=== PATIENT | male | born 1965 | race Caucasian/White ===

== ENCOUNTER 2018-11-24 14:17 | Observation (INO) | payer BC ==
[~2018-11-24 14:17] MED LIST: REGADENOSON INJ 0.4 MG/5 ML DISP.SYRIN IV ONE
[2018-11-24] MEDS ORDERED: ASPIRIN 81 MG TABLET, CHEWABLE PO ONE (14:46)
--- NOTE | 2018-11-24 15:01 | ER Document Report ---
ED Medical Screen (RME) - General Chief Complaint: Chest Pain Stated Complaint: CHEST PAIN Time Seen by Provider: 11/24/18 14:41 Mode of Arrival: Ambulatory Information source: Patient Notes: Patient is a 53-year-old male past medical history of angina and 2 cardiac stents presenting to the emergency department with complaints of left-sided chest pressure that is been intermittent over the last 2 weeks. Patient reports today the pain is worsening. Patient denies any shortness of breath, diaphoresis or radiation of the pain. He states this does feel similar to his previous episodes of angina. Exam: Patient alert, oriented, answering all questions appropriately. Heart sounds S1-S2 present with no ectopy noted. Lung sounds clear and equal bilaterally. No pain upon palpation of the chest wall. I have greeted and performed a rapid initial assessment of this patient. A comprehensive ED assessment and evaluation of the patient, analysis of test results and completion of the medical decision making process will be conducted by additional ED providers. I have specifically instructed the patient or family members with the patient to immediately return to any nursing staff should anything change in the patient's condition or with their chief complaint. This medical record was dictated with voice recognizing software. There may be grammatical, syntax errors that are unintended. TRAVEL OUTSIDE OF THE [place] IN LAST 30 DAYS: No - Related Data Allergies/Adverse Reactions: No Known Allergies Allergy (Verified 11/24/18 14:50) Past Medical History - Social History Frequency of alcohol use: None Drug Abuse: None Physical Exam - Vital signs Vitals: Temp Pulse Resp BP Pulse Ox 97.8 F 97 16 131/93 H 99 11/24/18 14:25 11/24/18 14:25 11/24/18 14:25 11/24/18 14:25 11/24/18 14:25 Course - Vital Signs Vital signs: Temp Pulse Resp BP Pulse Ox 97.8 F 97 16 131/93 H 99 11/24/18 14:25 11/24/18 14:25 11/24/18 14:25 11/24/18 14:25 11/24/18 14:25
--- NOTE | 2018-11-24 15:21 | RADIOLOGY REPORT (SQ) ---
EXAM DESCRIPTION: CHEST 2 VIEWS COMPLETED DATE/TIME: 11/24/2018 3:10 pm REASON FOR STUDY: chest pain COMPARISON: None. EXAM PARAMETERS: NUMBER OF VIEWS: two views TECHNIQUE: Digital Frontal and Lateral radiographic views of the chest acquired. RADIATION DOSE: NA LIMITATIONS: none FINDINGS: LUNGS AND PLEURA: No opacities, masses or pneumothorax. No pleural effusion. MEDIASTINUM AND HILAR STRUCTURES: No masses or contour abnormalities. HEART AND VASCULAR STRUCTURES: Heart normal size. No evidence for failure. BONES: No acute findings. HARDWARE: None in the chest. OTHER: No other significant finding. IMPRESSION: NO ACUTE RADIOGRAPHIC FINDING IN THE CHEST. TECHNICAL DOCUMENTATION: JOB ID: [id number] [employer]- All Rights Reserved Reading location - IP/workstation name: [email or web address]
[2018-11-24 15:24] LABS: ABSOLUTE EOSINOPHILS # (AUTO) 0.4 10^3/uL (0.0-0.6); ABSOLUTE LYMPHOCYTES (AUTO) 3.5 10^3/uL (0.5-4.7); ABSOLUTE MONOCYTES (AUTO) 0.7 10^3/uL (0.1-1.4); ABSOLUTE NEUT (AUTO) 4.9 10^3/uL (1.7-8.2); BASOPHILS % (AUTO) 0.5 % (0-2); EOSINOPHILS % (AUTO) 4.5 % (0-6); HEMATOCRIT 47.6 % (37.9-51.0); HEMOGLOBIN 16.2 g/dL (13.5-17.0); LYMPHOCYTES % (AUTO) 36.4 % (13-45); MEAN CORPUSCULAR HEMOGLOBIN 28.5 pg (27.0-33.4); MEAN CORPUSCULAR HGB CONC 34.1 g/dL (32.0-36.0); MEAN CORPUSCULAR VOLUME 84 fl (80-97); MONOCYTES % (AUTO) 7.2 % (3-13); PLATELET COUNT 189 10^3/uL (150-450); RED BLOOD COUNT 5.69 10^6/uL (4.35-5.55); RED CELL DISTRIBUTION WIDTH 13.4 % (11.5-14.0); SEGMENTED NEUTROPHILS % (AUTO) 51.4 % (42-78); TOTAL CELLS COUNTED % (AUTO) 100 %; WHITE BLOOD COUNT 9.5 10^3/uL (4.0-10.5)
[2018-11-24 15:42] LABS: ALBUMIN 4.5 g/dL (3.5-5.0); ALKALINE PHOSPHATASE 67 U/L (38-126); ANION GAP 13 (5-19); ASPARTATE AMINO TRANSFERASE 25 U/L (17-59); BILIRUBIN,DIRECT 0.2 mg/dL (0.0-0.4); BILIRUBIN,TOTAL 0.4 mg/dL (0.2-1.3); BLOOD UREA NITROGEN 16 mg/dL (7-20); CALCIUM 10.6 mg/dL (8.4-10.2); CARBON DIOXIDE 28 mmol/L (22-30); CHLORIDE 98 mmol/L (98-107); GLUCOSE 130 mg/dL (75-110); TOTAL PROTEIN 7.3 g/dL (6.3-8.2)
--- NOTE | 2018-11-24 16:43 | ER Document Report ---
ED General - General Chief Complaint: Chest Pain Stated Complaint: CHEST PAIN Time Seen by Provider: 11/24/18 14:41 Mode of Arrival: Ambulatory TRAVEL OUTSIDE OF THE [place] IN LAST 30 DAYS: No - HPI Notes: Patient presents with 2 weeks of intermittent chest pain worse with exertion has become more intense over the last 2 days. She had 2 stents placed in [facility] approximately 2 years ago. Patient is a daily smoker and also takes oral diabetic medications. - Related Data Allergies/Adverse Reactions: No Known Allergies Allergy (Verified 11/24/18 14:50) Past Medical History - General Information source: Patient - Social History Smoking Status: Current Every Day Smoker Frequency of alcohol use: None Drug Abuse: None Family History: Reviewed & Not Pertinent Patient has suicidal ideation: No Patient has homicidal ideation: No Renal/ Medical History: Reports: Hx Kidney Stones Past Surgical History: Reports: Hx Cardiac Catheterization Review of Systems - Review of Systems Constitutional: No symptoms reported EENT: No symptoms reported Cardiovascular: See HPI Respiratory: No symptoms reported Gastrointestinal: No symptoms reported Genitourinary: No symptoms reported Male Genitourinary: No symptoms reported Musculoskeletal: No symptoms reported Skin: No symptoms reported Hematologic/Lymphatic: No symptoms reported Neurological/Psychological: No symptoms reported Physical Exam - Vital signs Vitals: Temp Pulse Resp BP Pulse Ox 97.8 F 97 16 131/93 H 99 11/24/18 14:25 11/24/18 14:25 11/24/18 14:25 11/24/18 14:25 11/24/18 14:25 - General General appearance: Appears well, Alert - HEENT Head: Normocephalic, Atraumatic Eyes: Normal Conjunctiva: Normal Cornea: Normal Extraocular movements intact: Yes Pupils: PERRL - Respiratory Respiratory status: No respiratory distress Chest status: Nontender Breath sounds: Normal Chest palpation: Normal - Cardiovascular Rhythm: Regular Heart sounds: Normal auscultation Murmur: Yes - Abdominal Inspection: Normal Distension: No distension Bowel sounds: Normal Tenderness: Nontender - Extremities General upper extremity: Normal inspection, Normal ROM General lower extremity: Normal inspection, Normal ROM - Neurological Neuro grossly intact: Yes Cognition: Normal Orientation: AAOx4 Course - Re-evaluation Re-evalutation: 11/24/18 16:42 Patient has heart score 4 with concerning history of chest pain worse with exertion over the last 2 weeks. Will be admitted for further work-up. - Vital Signs Vital signs: Temp Pulse Resp BP Pulse Ox 98.3 F 94 16 105/81 99 11/25/18 16:16 11/25/18 16:16 11/25/18 16:16 11/25/18 16:16 11/25/18 16:16 - Laboratory Result Diagrams: 11/24/18 15:04 11/24/18 15:04 Laboratory results interpreted by me: 11/24/18 11/24/18 11/24/18 15:04 15:04 15:04 RBC 5.69 H Glucose 130 H Hemoglobin A1c % 8.3 H Calcium 10.6 H - Diagnostic Test Radiology reviewed: Reports reviewed - EKG Interpretation by Me EKG shows normal: Sinus rhythm Rate: Normal Rhythm: NSR - No concerning ST depressions or elevation with normal axis and int ervals Discharge - Discharge Clinical Impression: Chest pain Qualifiers: Chest pain type: unspecified Qualified Code(s): R07.9 - Chest pain, unspecified Condition: Stable Disposition: ADMITTED OBSERVATION Admitting Provider: Amber (Hospitalist) Unit Admitted: Telemetry
[2018-11-24] MEDS ORDERED: NITROGLYCERIN 0.4 MG/TAB 25 TAB/BOTTLE SL PRN (17:11)
[2018-11-24] MEDS ORDERED: DEXTROSE 50%-WATER 25 GM/50 ML DISP.SYRIN IV PRN ×2 (17:19)
[2018-11-24] MEDS ORDERED: GLUCAGON,HUMAN RECOMB 1 MG INJ IM PRN (17:19)
[2018-11-24] MEDS ORDERED: DEXTROSE 40% GEL 15 GM TUBE PO PRN ×2 (17:19)
--- NOTE | 2018-11-24 17:19 | PDOC H&P ---
History of Present Illness Admission Date/PCP: 11/24/18 16:51 Patient complains of: chest pain History of Present Illness: PAUL SCHULTZ is a 53 year old male with a past medical history of CAD with 2 prior stenting in 2017 at [facility], diabetes mellitus type 2 and chronic cigarette smoking who presented with chest pain. Patient says that he was working earlier this morning when he suddenly have left-sided chest pain which she described as tightness, nonradiating, 3/10 intensity. He denies shortness of breath, dizziness or diaphoresis. Denies c ough or fever or chills. Past Surgical History Past Surgical History: Reports: Cardiac Catheterization Social History Smoking Status: Current Every Day Smoker Family History Parental Family History Reviewed: Yes - No premature CAD Children Family History Reviewed: No Sibling(s) Family History Reviewed.: No Medication/Allergy Allergies/Adverse Reactions: No Known Allergies Allergy (Verified 11/24/18 14:50) Review of Systems All systems: reviewed and no additional remarkable complaints except as stated - As mentioned in HPI Physical Exam Vital Signs: Temp Pulse Resp BP Pulse Ox 98.1 F 97 13 107/83 99 11/24/18 16:10 11/24/18 14:25 11/24/18 16:10 11/24/18 16:10 11/24/18 16:21 Intake & Output 11/23/18 11/24/18 11/25/18 06:59 06:59 06:59 Weight 181 lb 3.52 oz General appearance: PRESENT: no acute distress, well-developed, well-nourished Head exam: PRESENT: atraumatic, normocephalic Eye exam: PRESENT: conjunctiva pink, EOMI, PERRLA. ABSENT: scleral icterus Ear exam: PRESENT: normal external ear exam Mouth exam: PRESENT: moist, tongue midline Neck exam: ABSENT: carotid bruit, JVD, lymphadenopathy, thyromegaly Respiratory exam: PRESENT: clear to auscultation katie. ABSENT: rales, rhonchi, wheezes Cardiovascular exam: PRESENT: RRR. ABSENT: diastolic murmur, rubs, systolic murmur Pulses: PRESENT: normal dorsalis pedis pul GI/Abdominal exam: PRESENT: normal bowel sounds, soft. ABSENT: distended, guarding, mass, organolmegaly, rebound, tenderness Rectal exam: PRESENT: deferred Extremities exam: PRESENT: full ROM. ABSENT: calf tenderness, clubbing, pedal edema Neurological exam: PRESENT: alert, awake, oriented to person, oriented to place, oriented to time, oriented to situation, CN II-XII grossly intact. ABSENT: motor sensory deficit Results Laboratory Results: 11/24/18 15:04 11/24/18 15:04 11/24/18 11/24/18 15:04 15:04 WBC 9.5 RBC 5.69 H Hgb 16.2 Hct 47.6 MCV 84 MCH 28.5 MCHC 34.1 RDW 13.4 Plt Count 189 Seg Neutrophils % 51.4 Sodium 139.3 Potassium 4.0 Chloride 98 Carbon Dioxide 28 Anion Gap 13 BUN 16 Creatinine 1.10 Est GFR ( Amer) > 60 Glucose 130 H Calcium 10.6 H Total Bilirubin 0.4 AST 25 Alkaline Phosphatase 67 Total Protein 7.3 Albumin 4.5 11/24/18 15:04 Troponin I < 0.012 Impressions: Chest X-Ray 11/24/18 14:46 IMPRESSION: NO ACUTE RADIOGRAPHIC FINDING IN THE CHEST. Assessment and Plan - Diagnosis (1) Chest pain Qualifiers: Chest pain type: unspecified Qualified Code(s): R07.9 - Chest pain, unspecified Is this a current diagnosis for this admission?: Yes Plan: First troponin is negative. No acute changes on EKG. We will continue to cycle troponins and EKG and will schedule patient for possible stress testing tomorrow. (2) CAD (coronary artery disease) Is this a current diagnosis for this admission?: Yes Plan: Resume home meds once verified. (3) Cigarette smoker Is this a current diagnosis for this admission?: Yes Plan: Counseled on smoking cessation. (4) Diabetes mellitus type 2 in nonobese Is this a current diagnosis for this admission?: Yes Plan: We will check patient's A1c. - Time Time Spent with patient: 25-34 minutes
--- NOTE | 2018-11-24 17:22 | ADVANCED CARE ---
- Diagnosis (1) Chest pain Diagnosis Current: Yes (2) CAD (coronary artery disease) Diagnosis Current: Yes (3) Cigarette smoker Diagnosis Current: Yes (4) Diabetes mellitus type 2 in nonobese Diagnosis Current: Yes Resuscitation Status: Full Code Discussion: Discussed with patient. He says he is a full code and prefers to receive chest compressions, defibrillation or mechanical ventilation if the need arises. He says that his Chanelle is his surrogate medical decision maker.
--- NOTE | 2018-11-24 18:17 | EKG REPORT ---
SEVERITY:- NORMAL ECG - SINUS RHYTHM : Confirmed by: Gilberto Pak MD 24-Nov-2018 18:17:04
[2018-11-24] MEDS ORDERED: ATORVASTATIN CALCIUM 40 MG TABLET PO SCH (22:00)
[2018-11-24] MEDS: HEPARIN SOD (PORCINE) 5,000 UNIT/ML 1 ML VIAL SUBCUT SCH (22:04)
[2018-11-24] MEDS: INSULIN LISPRO 100 UNIT/ML 3 ML VIAL SUBCUT SCH (22:09)
[2018-11-25] MEDS: HEPARIN SOD (PORCINE) 5,000 UNIT/ML 1 ML VIAL SUBCUT SCH ×2 (06:06→13:48)
--- NOTE | 2018-11-25 07:48 | EKG REPORT ---
SEVERITY:- NORMAL ECG - SINUS RHYTHM : Confirmed by: Gilberto Pak MD 25-Nov-2018 07:47:50
[2018-11-25] MEDS: INSULIN LISPRO 100 UNIT/ML 3 ML VIAL SUBCUT SCH ×3 (08:01→16:12)
--- NOTE | 2018-11-25 08:32 | RADIOLOGY REPORT (SQ) ---
EXAM DESCRIPTION: U/S THYROID/SFT TISS HD NECK COMPLETED DATE/TIME: 11/25/2018 6:27 am REASON FOR STUDY: sensation of left sided neck lump/mass COMPARISON: None. TECHNIQUE: Dynamic and static guillen-scale images acquired of the thyroid gland. Selected additional c olor/power Doppler images recorded. All images stored to PACS. LIMITATIONS: None. FINDINGS: RIGHT LOBE: Normal size. Homogeneous echotexture. No cystic or solid masses. LEFT LOBE: Normal size. Homogeneous echotexture. No cystic or solid masses. ISTHMUS: Normal size. Homogeneous echotexture. No cystic or solid masses. OTHER: There is a 1.6 cm lymph node identified at the area of clinically palpable abnormality. IMPRESSION: NORMAL THYROID ULTRASOUND. TECHNICAL DOCUMENTATION: JOB ID: [id number] [employer]- All Rights Reserved Reading location - IP/workstation name: [email or web address]
[2018-11-25] MEDS ORDERED: ASPIRIN 81 MG TABLET, CHEWABLE PO SCH (10:00)
[2018-11-25 16:18] VITALS: BP 105/81
--- NOTE | 2018-11-25 16:18 | PDOC DISCHARGE SUMMARY ---
General - Admit/Disc Date/PCP Admission Date/Primary Care Provider: 11/24/18 16:51 Discharge Date: 11/25/18 - Discharge Diagnosis (1) Chest pain Is this a current diagnosis for this admission?: Yes Summary: The patient's cardiac enzymes were all less than 0.012. Nuclear stress test was negative. The patient will resume his aspirin and statin therapy as well as metoprolol. He lives in [place] but works in the [place] area for several weeks at a time and goes home for weekends. I strongly suggested that he obtain a local outreach representative (to start and possible primary care) as he will spend more time in [place] than at home. His chest pain certainly could be due to reflux, esophageal spasm or musculoskeletal discomfort. I did explain that there is an outside chance that it is still cardiac and he may end up having a stress test as a final evaluation. I have referred him to Dr. Aviles for local cardiology. (2) CAD (coronary artery disease) Is this a current diagnosis for this admission?: Yes Summary: The patient has a history of coronary disease with stent placement. As noted above it is unlikely but still possible that his chest pain could be cardiac. He will resume all his medications and follow-up with cardiology as noted above. (3) Diabetes mellitus type 2 in nonobese Is this a current diagnosis for this admission?: Yes Summary: The patient will resume his diabetic regimen as it was prior to this hospita lization. (4) Parotitis Is this a current diagnosis for this admission?: Yes Summary: The patient reported a sense of swelling in the left side of his neck. Thyroid ultrasound was negative. He states that occasionally there is "drainage" into his mouth. Although there was no marked swelling of his parotid glands I explained why I thought this was intermittent parotitis. I told him to try lemon drops or lemon juice to maximize saliva production and see if this helps. If not he will need ENT evaluation. (5) Tobacco dependency Is this a current diagnosis for this admission?: Yes Summary: The patient still smokes. He has multiple risk factors and cessation was encouraged. - Additional Information Resuscitation Status: Full Code Discharge Diet: Cardiac, Diabetic Discharge Activity: Activity As Tolerated Home Medications: Atorvastatin Calcium [Lipitor 40 mg Tablet] 40 mg PO QHS 11/24/18 Canagliflozin [Invokana] 300 mg PO DAILY 11/24/18 Dulaglutide [Trulicity] 1.5 mg SQ Q7D 11/24/18 Esomeprazole Mag Trihydrate [Nexium] 40 mg PO DAILY 11/24/18 Glimepiride [Amaryl] 2 mg PO BID 11/24/18 Metformin HCl 1,000 mg PO BID 11/24/18 Metoprolol Succinate [Toprol Xl 25 mg Tab.sr] 12.5 mg PO BID 11/24/18 Aspirin [Aspirin 81 mg Chewable Tablet] 81 mg PO DAILY tab.chew 11/25/18 Atorvastatin Calcium [Lipitor 40 mg Tablet] 40 mg PO QHS tablet 11/25/18 History of Present Illness Patient complains of: Chest pain History of Present Illness: PAUL SCHULTZ is a 53 year old male with a history of coronary disease and 2 coronary stents placed. With exertion he developed left-sided chest pain. This was described as a tightness that was nonradiating. It was a 3/10 intensity. It was not associated with dyspnea, diaphoresis or lightheadedness. Because of his history he was referred to the hospital service for admission. Other risk factors include his diabetes and continued use of tobacco products. Hospital Course Hospital Course: The patient an unremarkable hospital course. He is pain-free today. His stress test is negative. We will set him up for an outpatient appointment with local cardiology. Physical Exam Vital Signs: Temp Pulse Resp BP Pulse Ox 98.3 F 94 16 105/81 99 11/25/18 16:16 11/25/18 16:16 11/25/18 16:16 11/25/18 16:16 11/25/18 16:16 Intake & Output 11/24/18 11/25/18 11/26/18 06:59 06:59 06:59 Intake Total 720 Balance 720 Weight 82.2 kg General appearance: PRESENT: no acute distress, cooperative, well-developed Head exam: PRESENT: normocephalic Eye exam: PRESENT: conjunctiva pink, scleral icterus. ABSENT: EOMI Ear exam: PRESENT: normal external ear exam. ABSENT: bleeding, drainage Mouth exam: PRESENT: moist, tongue midline Neck exam: PRESENT: other - Palpation of the left side of his face and submandibular area does not reveal any marked swelling or tenderness.. ABSENT: tenderness, thyromegaly, tracheostomy Respiratory exam: PRESENT: clear to auscultation katie, symmetrical, unlabored. ABSENT: rales, rhonchi, tachypnea, wheezes Cardiovascular exam: PRESENT: RRR, +S1, +S2 GI/Abdominal exam: PRESENT: normal bowel sounds, soft. ABSENT: distended, guarding, tenderness Rectal exam: PRESENT: deferred Gentrourinary exam: ABSENT: indwelling catheter Extremities exam: ABSENT: calf tenderness, joint swelling, pedal edema Musculoskeletal exam: PRESENT: ambulatory, normal inspection Neurological exam: PRESENT: alert, awake, oriented to person, oriented to place, oriented to time, oriented to situation, CN II-XII grossly intact Psychiatric exam: PRESENT: appropriate affect. ABSENT: agitated, anxious Focused psych exam: ABSENT: delusional Skin exam: PRESENT: dry, normal color, warm. ABSENT: rash Results Laboratory Results: 11/24/18 15:04 11/24/18 15:04 11/24/18 11/24/18 11/25/18 15:04 19:00 00:40 Troponin I < 0.012 < 0.012 < 0.012 Impressions: Chest X-Ray 11/24/18 14:46 IMPRESSION: NO ACUTE RADIOGRAPHIC FINDING IN THE CHEST. Thyroid Ultrasound 11/24/18 17:16 IMPRESSION: NORMAL THYROID ULTRASOUND. Qualifiers - * PATIENT BEING DISCHARGED WITH ANY OF THE FOLLOWING DIAGNOSIS: No Acute Heart Failure - Is this a Heart Failure Patient?: No Plan Time Spent: Greater than 30 Minutes
--- NOTE | 2018-11-25 22:04 | DRAGON STRESS TEST REPORT ---
Intravenous Lexiscan Cardiolite stress test using single photon emmision computerized tomography. Date of procedure: 11/25/2018. Ordering Provider: Dr.Rex Key. Patient's status: In Patient. Indication: Chest pain in a patient with a history of coronary artery disease, and history of stent in the RCA and LAD.. Coronary risk factors: Age, diabetes mellitus, dyslipidemia, and tobacco abuse disorder. Resting EKG: Sinus Rhythm. Within Normal Limits. Stress EKG: No changes of ischemia. The patient has no chest pain or discomfort, and there were no arrhythmias seen. Reason for termination: Protocol. Conclusions: Normal EKG and hemodynamic response to IV Lexiscan. Nuclear data: At rest the patient was given 12.29 millicuries of technetium 99m sestamibi injected intravenously. As per protocol rest non gated SPECT images were obtained. Subsequently the patient was given intravenous Lexiscan at a dose of 0.4 mg in 5 mL intravenously, followed by flush with normal saline. Subsequently the stress dose of 37.5 millicuries of technetium 99m sestamibi was injected intravenously. As per protocol stress gated images were obtained. Nuclear interpretation: Review of images showed that all segments of the myocardium had normal perfusion at rest, and normal perfusion post stress with IV Lexiscan. All segments of the myocardium had normal motion, contraction, and thickening by gated study. T. I D. ratio was normal at 1.01. There is no transient ischemic dilatation of the left ventricle. Computer read rest, and stress left ventricular ejection fraction were 42 %, and 50 %, respectively. Visually both the stress and rest ejection fractions were normal, and greater than 55%. Conclusion: 1. There is no scintigraphic evidence of Lexiscan induced myocardial ischemia. 2. There is no scintigraphic evidence of myocardial infarction/scar. Recommendations: Aggressive risk factor modification, and treating the underlying co- morbidities. MTDD
== END 2018-11-25 16:48 | disposition home or self-care (01) ==
LOC: ER 14:17 → EH 16:51 → 5 17:51
PROVIDERS: ADMIT Internal Medicine; ATTEND Internal Medicine
DX: R07.89 Other chest pain (principal); I25.10 Atherosclerotic heart disease of native coronary artery without angina pectoris; E11.9 Type 2 diabetes mellitus without complications; K11.20 Sialoadenitis, unspecified; F17.210 Nicotine dependence, cigarettes, uncomplicated; Z95.5 Presence of coronary angioplasty implant and graft; Z79.84 Long term (current) use of oral hypoglycemic drugs; Z79.899 Other long term (current) drug therapy; Z79.82 Long term (current) use of aspirin
CPT/HCPCS: 93005 ×2; 99285; 36415 ×2; 82962 ×2; 85025; 80053; 84484 ×2; 83036; 93017; 71046; 76536; 78452; 93010; G0378 ×3; A9500; J2785; J1644; J3490 ×2; Q9969

== ENCOUNTER 2019-11-23 07:53 | Day surgery (SDC) | payer BC ==
[2019-11-23] MEDS ORDERED: PROPOFOL INJ 200 MG/20 ML VIAL IV ONE (07:57)
[2019-11-23] MEDS ORDERED: METOPROLOL TARTRATE PF/INJ 5 MG/5 ML SDV IV ONE (09:42)
[2019-11-23] MEDS ORDERED: INSULIN REG, HUMAN 100 UNIT/ML 3 ML VIAL (PYX) IV ONE (10:30)
--- NOTE | 2019-11-23 10:59 | Operative Report ---
Operative Report DATE OF SURGERY: 11/23/19 Operative Report: Risk, benefits and alternatives of the procedure including the risk of bleeding, perforation requiring surgery were explained to the patient in detail and informed consent is obtained. Patient is placed in a left, lateral decubital position. Timeout was called. Propofol medication is administered. Rectal examination is done which did not reveal any masses, tears or fissures. An Olympus videoscope was introduced into the patient's rectum. Scope was then carefully advanced all the way to the cecum. Cecum was identified by the usual anatomical landmarks including the ileocecal valve as well as appendiceal office. Photodocumentation is obtained. Scope was then sequentially pulled back via the various segments of the colon including the ascending colon, hepatic flexure, transverse colon, splenic flexure, descending colon finding to the rectosigmoid portions of the colon. Retroflexion maneuvers performed. The risks benefits and alternatives of the procedure explained to the patient in detail and informed consent is obtained.A GIF Olympus video scope was inserted into the patient's mouth and hypopharynx, the esophagus is identified intubated and insufflated, the scope was then advanced through the esophagus stomach and duodenum ,retroflexion maneuver is done ,the esophagus stomach and first and second portions of the duodenum examined PREOPERATIVE DIAGNOSIS: Colorectal cancer screening. Gastroesophageal reflux disease POSTOPERATIVE DIAGNOSIS: Right colon inflammation status post biopsy. Internal hemorrhoids. Esophagitis status post biopsy rule out Wren's. Gastritis status post biopsy rule out H. pylori OPERATION: Colonoscopy with biopsy. EGD with biopsy SURGEON: SHERRIE MONROE ANESTHESIA: LMAC TISSUE REMOVED OR ALTERED: As noted above. COMPLICATIONS: None. ESTIMATED BLOOD LOSS: None. INTRAOPERATIVE FINDINGS: As noted above. PROCEDURE: Patient tolerated the procedure well. No immediate postprocedure complications are noted. Patient is discharged in good condition. Discharge date 11/23/2019. Discharge diet: Regular. Discharge activity: Regular. 2 to 3-week follow-up to discuss findings. Patient is instructed to call the office or proceed to the emergency room should there be any further problems or questions. Wait on the pathology. Depending on pathology may be possible to go for 10-year surveillance
[2019-11-23 11:27] VITALS: BP 108/79
== END 2019-11-23 11:45 | disposition home or self-care (01) ==
LOC: END 07:53
PROVIDERS: ATTEND Internal Medicine Gastroenterology
DX: Z12.11 Encounter for screening for malignant neoplasm of colon (principal); K29.50 Unspecified chronic gastritis without bleeding; K21.9 Gastro-esophageal reflux disease without esophagitis; K64.8 Other hemorrhoids; E11.9 Type 2 diabetes mellitus without complications; E78.00 Pure hypercholesterolemia, unspecified; Z79.899 Other long term (current) drug therapy; Z79.4 Long term (current) use of insulin
CPT/HCPCS: 43239; 45380; 82962; 88342 ×2; 88305 ×2; 88313 ×2; 00813; J3490; J1815; J2704; 813